=== PATIENT | female | born 1955 | race Caucasian/White ===

== ENCOUNTER 2016-12-19 09:38 | Day surgery (SDC) | payer OTHER, BC ==
[2016-12-18 09:23] VITALS: BMI 26.6
[2016-12-19 10:05] LABS: URINE APPEARANCE SLCLOUDY; URINE BILIRUBIN NEGATIVE (NEGATIVE); URINE BLOOD 2+ (NEGATIVE); URINE COLOR LTYELLOW; URINE GLUCOSE (UA) NEGATIVE (NEGATIVE); URINE KETONE NEGATIVE (NEGATIVE); URINE NITRITE NEGATIVE (NEGATIVE); URINE PROTEIN NEGATIVE (NEGATIVE); URINE UROBILINOGEN NEGATIVE mg/dL (0.2-1.0)
[2016-12-19 10:07] LABS: URINE MUCUS RARE; URINE RBC 3 /hpf (0-3); URINE WBC 1 /hpf (3-5)
--- NOTE | 2016-12-19 10:55 | HP ---
Satellite [facility] - Chief Complaint Chief Complaint: right knee pain History Source: Patient - Past Medical History Allergies/Adverse Reactions: Allergies Allergy/AdvReac Type Severity Reaction Status Date / Time codeine Allergy Severe Vomiting Verified 12/18/16 09:25 oxycodone Allergy Intermediate Vomiting Verified 12/18/16 09:26 "pain meds" AdvReac Intermediate Rash Uncoded 12/18/16 09:25 - Current Medications Current Medications: Home Medications Medication Instructions Recorded Bupropion HCl [Wellbutrin Xl] 300 mg PO DAILY 12/18/16 Clonazepam [Klonopin] 0.5 mg PO TID PRN 12/18/16 Cyclobenzaprine HCl [Flexeril 10 10 mg PO BID PRN 12/18/16 mg] Levothyroxine Sodium [Synthroid] 100 mcg PO DAILY 12/18/16 Montelukast Na [Singulair -] 10 mg PO PRN 12/18/16 Tapentadol HCl [Nucynta] 50 mg PO PRN 12/18/16 Zolpidem Tartrate [Ambien Cr] 12.5 mg PO HS PRN 12/18/16 Satellite Physical Exam - Physical Examination Vital Signs: Vital Signs Period Temp Pulse Resp BP Sys/Delacruz Pulse Ox Last 24 Hr 97.6 F 91 20 126/77 99 Extremities: Other (+ joint line tenderness) Satellite Impression/Plan - Impression/Plan Impression: internal derangement right knee Operative Procedure: arthroscopy right knee Date to be Performed: 12/19/16
[2016-12-19] MEDS ORDERED: LIDOCAINE 1%/EPI 1:100000 (20 ML MULTI DOSE VIAL) ONE (11:19)
[2016-12-19] MEDS ORDERED: BUPIVACAINE HCL/PF 0.5% (5MG/ML) 10 ML VIAL ONE (11:19)
[2016-12-19] MEDS ORDERED: PROPOFOL 20 ML ONE (11:46)
[2016-12-19] MEDS ORDERED: MIDAZOLAM HCL 2 MG/2 ML SINGLE DOSE VIAL ONE (11:47)
[2016-12-19] MEDS ORDERED: LIDOCAINE 1%/EPI 1:100000 (20 ML MULTI DOSE VIAL) IJ ONE (12:15)
[2016-12-19] MEDS ORDERED: BUPIVACAINE HCL/PF (5 MG/ML) 30 ML VIAL IJ ONE (12:15)
--- NOTE | 2016-12-19 12:20 | OP ---
Operative Note - Note: Operative Date: 12/19/16 ([facility]) Pre-Operative Diagnosis: right knee internal derangement Operation: right knee arthroscopy with ACL thermal shrinkage Post-Operative Diagnosis: Same as Pre-op Surgeon: Armando Hudson Anesthesiologist/[employer]AL[employer] TRAINEE: Oxana Hdez Anesthesia: General, Local Specimens Removed: shavings Estimated Blood Loss (mls): 5 Operative Report Dictated: Yes
[2016-12-19] MEDS ORDERED: oxyCODONE HCL 5 MG TABLET PO PRN (13:09)
[2016-12-19] MEDS ORDERED: ONDANSETRON 4 MG/2 ML VIAL IVPUSH PRN (13:09)
[2016-12-19] MEDS ORDERED: LACTATED RINGERS SOLUTION 1,000 ML IV SCH (13:15)
[2016-12-19 13:49] VITALS: TEMP 97.5
[2016-12-19 14:59] VITALS: BP 122/69; PULSE 78
[2016-12-19 16:42] LABS: URINE LEUK ESTERASE Negative (NEGATIVE)
--- NOTE | 2016-12-20 08:00 | OP ---
DATE OF OPERATION: 12/19/2016 PREOPERATIVE DIAGNOSIS: Internal derangement of right knee. POSTOPERATIVE DIAGNOSIS: Internal derangement of the right knee. PROCEDURE: Right knee arthroscopy with anterior cruciate ligament repair/thermal shrinkage. SURGICAL ATTENDING: Armando Hudson MD ANESTHESIA: General with LMA. CLOSURE: 4-0 nylon. COMPLICATIONS: None. CONDITION: To recovery in stable condition. DESCRIPTION OF OPERATIVE PROCEDURE: Patient was taken to the operating room on December 19, 2016. General anesthesia with LMA was administered by the anesthesiologist. Right lower extremity was prepped and draped in the usual sterile fashion. Then, medial and lateral infrapatellar portal sites were infiltrated with 1% Xylocaine with epinephrine. Each portal was then made with a 15 blade, followed by a blunt trocar. The trocar was placed up in the suprapatellar pouch. Through this trocar, the knee was inflated with a cocktail of 10 mL of 1% Xylocaine and 10 mL of 0.50% Marcaine and 20 mL of arthroscopic saline. After a period of time allowing the anesthetic to set, scope was placed through the trocar up into the suprapatellar pouch. Pouch was visualized to be clean. The medial and lateral gutters were visualized to be clean. The undersurface of the patella and trochlea were visualized to be intact with valgus stress on the knee. The medial compartment was then entered. The medial meniscus was visualized, probed, and found to be intact. The medial femoral condyle was probed and found to be intact as was the medial tibial plateau. In the figure-4 position, the lateral compartment was entered. The lateral meniscus visualized, probed, found to be intact. Lateral femoral condyle was entered, found to be intact as was the lateral tibial plateau. At 90 degrees, the ACL was visualized to be very floppy. It had good contour, but it was not taking up any stress. An ArthroCare device was used on its lowest power to shrink the ACL. Post shrinkage, the ACL took up good stress and, to probing, had some significant firmness to it. The knee was irrigated with copious amounts of irrigation. The portals were closed using 4-0 nylon. Prior to closure, 20 mL of 0.50% Marcaine was infused through the trocar for postoperative analgesia. A sterile pressure dressing was placed over the knee. The patient was awakened from anesthesia and transferred to recovery room in stable condition. No complications. Estimated blood loss: Negligible. Dong PATTERSON/[id number]
== END 2016-12-19 15:01 | disposition home or self-care (01) ==
LOC: JASU-SURG 09:38
PROVIDERS: ATTEND Orthopaedic Surgery
PROC: 0MRP4JZ Replacement of Left Knee Bursa and Ligament with Synthetic Substitute, Percutaneous Endoscopic Approach (ICD-10-PCS; 2016-12-19)
PROC: 0MQN4ZZ Repair Right Knee Bursa and Ligament, Percutaneous Endoscopic Approach (ICD-10-PCS; principal; 2016-12-19 12:15)
DX: M23.8X2 Other internal derangements of left knee (principal)
CPT/HCPCS: 81003; 81015; 94760

== ENCOUNTER 2022-10-20 12:37 | Inpatient (IN) | payer OTHER, BC ==
[2022-10-20] MEDS ORDERED: ONDANSETRON 4 MG/2 ML VIAL ONE (13:40)
[2022-10-20] MEDS ORDERED: morphine SULFATE 4 MG/ML VIAL ONE (13:40)
[2022-10-20] MEDS ORDERED: ONDANSETRON 4 MG/2 ML VIAL IVPUSH ONE (13:41)
[2022-10-20] MEDS ORDERED: morphine CARPU-JECT 4 MG/1 ML DISP.SYRIN IVPUSH ONE (13:41)
[2022-10-20 13:56] LABS: EPI CELLS 13 /uL (0-25.1); HYALINE CASTS 1 /uL (0-3.1); PH,URINE 5.5 (5.0-8.0); URINE APPEARANCE CLOUDY; URINE BACTERIA 7 /uL (0-1359); URINE BILIRUBIN NEGATIVE (NEGATIVE); URINE COLOR YELLOW; URINE GLUCOSE (UA) NEGATIVE (NEGATIVE); URINE KETONE NEGATIVE (NEGATIVE); URINE LEUK ESTERASE TRACE (NEGATIVE); URINE NITRITE NEGATIVE (NEGATIVE); URINE PROTEIN 1+ (NEGATIVE); URINE RBC 119 /uL (0-23.9); URINE UROBILINOGEN 0.2 mg/dL (0.2-1.0); URINE WBC 29 /uL (0-25.8)
[2022-10-20 14:39] LABS: BASO % 0.3 % (0-2.0); EOS % 1.2 % (0-4.5); HEMATOCRIT 38.6 % (32.4-45.2); HEMOGLOBIN 12.9 GM/dL (10.7-15.3); LYMPH % 29.1 % (8-40); MCH 31.7 pg (25.7-33.7); MCHC 33.5 g/dl (32.0-36.0); MEAN CELL VOLUME 94.7 fl (80-96); MEAN PLT VOLUME 7.4 fl (7.5-11.1); MONO % 6.5 % (3.8-10.2); NEUT % 62.9 % (42.8-82.8); PLATELET COUNT 256 10^3/uL (134-434); RBC 4.08 M/mm3 (3.60-5.2); RDW 14.9 % (11.6-15.6); WHITE BLOOD COUNT 7.9 K/mm3 (4.0-10.0)
[2022-10-20 14:54] LABS: POTASSIUM 4.6 mmol/L (3.5-5.1)
[2022-10-20 14:55] LABS: ALBUMIN 3.5 g/dl (3.4-5.0); CALCIUM 8.6 mg/dL (8.5-10.1)
[2022-10-20 14:56] LABS: BLOOD UREA NITROGEN 16.7 mg/dL (7-18)
[2022-10-20 15:00] LABS: TOT PROT 6.3 g/dl (6.4-8.2)
[2022-10-20 15:01] LABS: BILIRUBIN,TOTAL 0.5 mg/dL (0.2-1)
[2022-10-20] MEDS ORDERED: clonazePAM 0.5 MG TABLET PO PRN (17:25)
[2022-10-20] MEDS ORDERED: ACETAMINOPHEN 1000 MG/100 ML BAG IVPB PRN (17:27)
[2022-10-20] MEDS ORDERED: ONDANSETRON 4 MG/2 ML VIAL IVPUSH PRN ×2 (17:29→17:39)
[2022-10-20] MEDS: LACTATED RINGERS SOLUTION 1,000 ML/1,000 ML INFUS.BAG IV SCH (18:01)
[2022-10-20] MEDS ORDERED: HYDROmorphone HCl 2 MG/ML VIAL ONE (18:03)
[2022-10-20] MEDS ORDERED: TAMSULOSIN HCL 0.4 MG CAP ONE (18:03)
[2022-10-20] MEDS: HYDROmorphone HCl 2 MG/ML VIAL IVPUSH PRN (18:11)
[2022-10-20] MEDS: TAMSULOSIN HCL 0.4 MG CAP PO SCH (18:15)
[2022-10-20] MEDS ORDERED: ZOLPIDEM TARTRATE 5 MG TABLET PO PRN (22:00)
[2022-10-21] MEDS: HYDROmorphone HCl 2 MG/ML VIAL IVPUSH PRN ×4 (02:34→22:19)
[2022-10-21] MEDS: LACTATED RINGERS SOLUTION 1,000 ML/1,000 ML INFUS.BAG IV SCH ×2 (06:10→17:39)
[2022-10-21] MEDS ORDERED: LEVOTHYROXINE NA 88 MCG TABLET (FP) PO SCH (07:00)
[2022-10-21] MEDS: TAMSULOSIN HCL 0.4 MG CAP PO SCH ×2 (08:18→09:23)
[2022-10-21] MEDS ORDERED: TAMSULOSIN HCL 0.4 MG CAP PO SCH (08:30)
[2022-10-21] MEDS ORDERED: MONTELUKAST NA 10 MG TABLET PO SCH (10:00)
[2022-10-21] MEDS ORDERED: FAMOTIDINE 20 MG TABLET PO SCH (10:00)
[2022-10-21 11:20] LABS: BASO % 0.2 % (0-2.0); EOS % 1.9 % (0-4.5); HEMATOCRIT 32.8 % (32.4-45.2); HEMOGLOBIN 11.2 GM/dL (10.7-15.3); LYMPH % 36.9 % (8-40); MCH 32.4 pg (25.7-33.7); MCHC 34.1 g/dl (32.0-36.0); MEAN PLT VOLUME 6.9 fl (7.5-11.1); MONO % 6.8 % (3.8-10.2); NEUT % 54.2 % (42.8-82.8); PLATELET COUNT 190 10^3/uL (134-434); RBC 3.46 M/mm3 (3.60-5.2); RDW 14.8 % (11.6-15.6)
[2022-10-21 11:22] LABS: INR 0.97 (0.83-1.09); PROTHROMBIN TIME (PATIENT) 11.3 SEC (9.7-13.0)
[2022-10-21 11:49] LABS: POTASSIUM 4.5 mmol/L (3.5-5.1)
[2022-10-21 12:05] LABS: CALCIUM 8.2 mg/dL (8.5-10.1)
[2022-10-21 12:06] LABS: BLOOD UREA NITROGEN 12.9 mg/dL (7-18)
[2022-10-21 12:09] LABS: CREATININE 0.9 mg/dL (0.55-1.3)
[2022-10-21] MEDS ORDERED: PROPOFOL 20 ML ONE (14:43)
[2022-10-21] MEDS ORDERED: LIDOCAINE HCL/PF 2% SDV 5ML VIAL ONE (14:43)
[2022-10-21] MEDS ORDERED: MIDAZOLAM HCL 2 MG/2 ML SINGLE DOSE VIAL ONE (14:43)
[2022-10-21] MEDS ORDERED: ceFAZolin SODIUM 1 GM VIAL IVPB ONE ×2 (15:07→15:19)
[2022-10-21] MEDS ORDERED: ceFAZolin 2 GRAM PREMIX BAG IVPB ONE (15:07)
[2022-10-21] MEDS ORDERED: ceFAZolin SODIUM 1 GM VIAL ONE (15:18)
[2022-10-21] MEDS ORDERED: DEXAMETHASONE SOD PHOSPHATE 4 MG/1 ML VIAL ONE (15:18)
[2022-10-21] MEDS ORDERED: PROPOFOL 40 ML ONE (15:20)
[2022-10-21] MEDS ORDERED: ONDANSETRON 4 MG/2 ML VIAL ONE (15:32)
[2022-10-21] MEDS ORDERED: KETOROLAC TROMETHAMINE 30 MG/1 ML VIAL ONE (15:32)
[2022-10-21] MEDS ORDERED: ACETAMINOPHEN 1000 MG/100 ML BAG IVPB ONE (15:43)
[2022-10-21] MEDS ORDERED: LACTATED RINGERS SOLUTION 1,000 ML IV SCH (15:45)
[2022-10-21] MEDS ORDERED: clonazePAM 0.5 MG TABLET PO PRN (16:04)
[2022-10-21] MEDS ORDERED: ONDANSETRON 4 MG/2 ML VIAL IVPUSH PRN (16:04)
[2022-10-21] MEDS ORDERED: ACETAMINOPHEN 1000 MG/100 ML BAG IVPB PRN (16:04)
[2022-10-21] MEDS ORDERED: ACETAMINOPHEN INJECTION 100 ML IVPB ONE (16:19)
[2022-10-22] MEDS: ZOLPIDEM TARTRATE 5 MG TABLET PO PRN (01:58)
[2022-10-22] MEDS: HYDROmorphone HCl 2 MG/ML VIAL IVPUSH PRN ×4 (05:34→20:38)
[2022-10-22] MEDS: LEVOTHYROXINE NA 88 MCG TABLET (FP) PO SCH (06:16)
[2022-10-22] MEDS ORDERED: PIPERACILLIN/TAZOB 3.375 GM 3.375 GM in DEXTROSE 5%-WATER - 50 ML IVPB ONE (08:26)
[2022-10-22] MEDS: TAMSULOSIN HCL 0.4 MG CAP PO SCH (08:40)
[2022-10-22 09:30] LABS: BASO % 0.5 % (0-2.0); EOS % 0.1 % (0-4.5); HEMATOCRIT 34.1 % (32.4-45.2); HEMOGLOBIN 11.3 GM/dL (10.7-15.3); LYMPH % 12.6 % (8-40); MCH 32.1 pg (25.7-33.7); MCHC 33.1 g/dl (32.0-36.0); MEAN CELL VOLUME 96.8 fl (80-96); MEAN PLT VOLUME 7.4 fl (7.5-11.1); MONO % 4.7 % (3.8-10.2); NEUT % 82.1 % (42.8-82.8); PLATELET COUNT 202 10^3/uL (134-434); RBC 3.52 M/mm3 (3.60-5.2); RDW 14.2 % (11.6-15.6); WHITE BLOOD COUNT 10.1 K/mm3 (4.0-10.0)
[2022-10-22] MEDS: MONTELUKAST NA 10 MG TABLET PO SCH (09:32)
[2022-10-22] MEDS: FAMOTIDINE 20 MG TABLET PO SCH (09:32)
[2022-10-22 09:54] LABS: POTASSIUM 4.5 mmol/L (3.5-5.1)
[2022-10-22 09:57] LABS: CALCIUM 8.3 mg/dL (8.5-10.1)
[2022-10-22 09:58] LABS: ALBUMIN 2.9 g/dl (3.4-5.0); BLOOD UREA NITROGEN 12.8 mg/dL (7-18)
[2022-10-22 10:01] LABS: BILIRUBIN,TOTAL 0.5 mg/dL (0.2-1); CREATININE 1.2 mg/dL (0.55-1.3)
[2022-10-22 10:02] LABS: TOT PROT 5.3 g/dl (6.4-8.2)
[2022-10-22] MEDS: LACTATED RINGERS SOLUTION 1,000 ML/1,000 ML INFUS.BAG IV SCH (16:42)
[2022-10-22 20:10] VITALS: RESP 18
[2022-10-22 21:40] VITALS: BMI 23.8
[2022-10-23] MEDS: ZOLPIDEM TARTRATE 5 MG TABLET PO PRN (01:16)
[2022-10-23] MEDS: LACTATED RINGERS SOLUTION 1,000 ML/1,000 ML INFUS.BAG IV SCH (06:09)
[2022-10-23] MEDS: LEVOTHYROXINE NA 88 MCG TABLET (FP) PO SCH (06:09)
[2022-10-23 08:43] LABS: MCH 31.4 pg (25.7-33.7); MCHC 32.3 g/dl (32.0-36.0); MEAN CELL VOLUME 97.3 fl (80-96); MEAN PLT VOLUME 8.1 fl (7.5-11.1); PLATELET COUNT 209 10^3/uL (134-434); RDW 14.4 % (11.6-15.6); WHITE BLOOD COUNT 8.8 K/mm3 (4.0-10.0)
[2022-10-23 09:07] LABS: POTASSIUM 4.5 mmol/L (3.5-5.1)
[2022-10-23 09:09] LABS: CALCIUM 8.5 mg/dL (8.5-10.1)
[2022-10-23 09:10] LABS: ALBUMIN 3.2 g/dl (3.4-5.0)
[2022-10-23 09:13] LABS: CREATININE 0.9 mg/dL (0.55-1.3)
[2022-10-23 09:15] LABS: BILIRUBIN,TOTAL 0.4 mg/dL (0.2-1); TOT PROT 5.7 g/dl (6.4-8.2)
[2022-10-23] MEDS: FAMOTIDINE 20 MG TABLET PO SCH (09:25)
[2022-10-23] MEDS: TAMSULOSIN HCL 0.4 MG CAP PO SCH (09:25)
[2022-10-23] MEDS: MONTELUKAST NA 10 MG TABLET PO SCH (09:25)
[2022-10-23] MEDS ORDERED: CEFTRIAXONE 1 GM in DEXTROSE 5%-WATER - 50 ML IVPB SCH (10:00)
[2022-10-23] MEDS ORDERED: ACETAMINOPHEN 1000 MG/100 ML BAG IVPB ONE (10:02)
[2022-10-23 14:33] VITALS: BP 140/63; PULSE 89; TEMP 97.4
== END 2022-10-23 15:30 | disposition home or self-care (01) | DRG 661 ==
LOC: JER 12:37 → JERBED 18:14 → J5S 19:53 → OBSVTOIN 10-21 09:30
PROVIDERS: ADMIT Internal Medicine
PROC: BT1DZZZ Fluoroscopy of Right Kidney, Ureter and Bladder (ICD-10-PCS; 2022-10-21)
PROC: 0T768DZ Dilation of Right Ureter with Intraluminal Device, Via Natural or Artificial Opening Endoscopic (ICD-10-PCS; principal; 2022-10-21 15:30)
DX: N20.1 Calculus of ureter (principal); M79.7 Fibromyalgia; Z98.84 Bariatric surgery status; Z85.528 Personal history of other malignant neoplasm of kidney; G43.809 Other migraine, not intractable, without status migrainosus; E03.9 Hypothyroidism, unspecified; Z90.5 Acquired absence of kidney; D86.9 Sarcoidosis, unspecified; I10 Essential (primary) hypertension; E78.5 Hyperlipidemia, unspecified; K21.9 Gastro-esophageal reflux disease without esophagitis; G47.00 Insomnia, unspecified
CPT/HCPCS: 36415; 74176-TC; 80048; 80053; 81003; 85025; 85027; 85610; 86850; 86900; 86901; 87086; 99285-25; C2617; G0378

== ENCOUNTER 2022-11-07 04:57 | Day surgery (SDC) | payer OTHER, BC ==
[2022-11-05 10:39] VITALS: BMI 23.0
[2022-11-07] MEDS ORDERED: PROPOFOL 40 ML ONE (07:28)
[2022-11-07] MEDS ORDERED: MIDAZOLAM HCL 2 MG/2 ML SINGLE DOSE VIAL ONE (07:29)
[2022-11-07] MEDS ORDERED: DEXTROSE 5%-0.45% SALINE 1,000 ML IV SCH (07:45)
[2022-11-07] MEDS ORDERED: ceFAZolin SODIUM 1 GM VIAL IVPB ONE (07:57)
[2022-11-07] MEDS ORDERED: IOHEXOL 300 MG/ML INFUS..BTL IV ONE (08:00)
[2022-11-07] MEDS ORDERED: IBUPROFEN 800 MG/8 ML IJ IVPB ONE (09:38)
[2022-11-07 10:28] VITALS: RESP 20
[2022-11-07 12:05] VITALS: TEMP 97.8
[2022-11-07 12:11] VITALS: BP 122/70; PULSE 70
[2022-11-07] MEDS ORDERED: IBUPROFEN 800 MG/8 ML IJ IVPB PRN (14:17)
== END 2022-11-07 12:13 | disposition home or self-care (01) ==
LOC: JASU-SURG 04:57
PROVIDERS: ATTEND Urology
PROC: 0TC38ZZ Extirpation of Matter from Right Kidney Pelvis, Via Natural or Artificial Opening Endoscopic (ICD-10-PCS; principal; 2022-11-07 07:30)
PROC: 0T768DZ Dilation of Right Ureter with Intraluminal Device, Via Natural or Artificial Opening Endoscopic (ICD-10-PCS; 2022-11-07 07:30)
DX: N20.0 Calculus of kidney (principal)
CPT/HCPCS: 76000-TC-FY; 94760; C2617